=== PATIENT | female | born 1965 | race Caucasian/White ===

== ENCOUNTER → 2017-02-26 | Outpatient (CLI) | payer MEDICARE, OTHER | LOC: KOH-I 02-25 09:30 → US 08:30 → KOH-I 03-05 09:00 | DX: R10.13 Epigastric pain (principal) | CPT/HCPCS: 76705 ==

== ENCOUNTER 2017-05-15 18:12 | Emergency (ER) | payer MEDICARE, OTHER ==
[2017-05-15 18:48] LABS: HEMOGLOBIN 14.4 gm/dl (12.3-15.3); RED BLOOD COUNT 5.3 M/UL (4.00-5.10); WHITE BLOOD COUNT 20.1 K/UL (4.5-11.0)
[2017-05-15 19:06] LABS: BUN/CREATININE RATIO 21 (0-10)
== END 2017-05-16 03:30 ==
LOC: ER1 18:12
PROVIDERS: Specialist/Technologist Athletic Trainer
DX: A41.9 Sepsis, unspecified organism (principal); I31.3 Pericardial effusion (noninflammatory); J90 Pleural effusion, not elsewhere classified; R10.817 Generalized abdominal tenderness; G30.0 Alzheimer's disease with early onset; F02.80 Dementia in other diseases classified elsewhere, unspecified severity, without behavioral disturbance, psychotic disturbance, mood disturbance, and anxiety; E07.9 Disorder of thyroid, unspecified; F17.210 Nicotine dependence, cigarettes, uncomplicated; Z79.899 Other long term (current) drug therapy
CPT/HCPCS: 36415; 51702; 70450; 71010; 71260; 80053; 81001; 82140; 82550; 82553; 83605; 83874; 84484; 85025; 87040; 87086; 93005; 96361; 96365; 96367; 96375; 99291; 99292; J1956; J2020; J3370; J7050; Q9962